=== PATIENT | female | born 1975 | race Caucasian/White ===

== ENCOUNTER 2016-11-16 14:38 | Emergency (ER) | payer OTHER ==
[~2016-11-16] VITALS: Ht 152.4 cm; Wt 54.4 kg
[~2016-11-16 14:38] MED LIST: AMLO-62 PO; FLUO20CA36 PO; SIMV10TA2 PO
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
--- NOTE | 2016-11-16 15:16 | NUR ---
pt to radiology for head ct scan via [facility].
[2016-11-16] MEDS ORDERED: HYDROCODONE/APAP 10/325MG 1 EA TABLET PO ONE (15:30)
[2016-11-16] MEDS ORDERED: HYDROCODONE/APAP 10/325MG 1 EA TABLET ONE (15:42)
[2016-11-16 16:46] VITALS: BP 148/72
--- NOTE | 2016-11-16 16:47 | NUR ---
Patient discharged to home in stable condition. Written and verbal after care instructions given. Patient verbalizes understanding of instruction.
== END 2016-11-16 16:48 | disposition home or self-care (01) ==
LOC: ER 14:41
DX: S09.90XA Unspecified injury of head, initial encounter (principal); S16.1XXA Strain of muscle, fascia and tendon at neck level, initial encounter; S60.221A Contusion of right hand, initial encounter; I10 Essential (primary) hypertension; F32.9 Major depressive disorder, single episode, unspecified; R01.1 Cardiac murmur, unspecified; Q21.0 Ventricular septal defect; F50.2 Bulimia nervosa; F17.200 Nicotine dependence, unspecified, uncomplicated; E78.00 Pure hypercholesterolemia, unspecified; Z88.2 Allergy status to sulfonamides; V49.40XA Driver injured in collision with unspecified motor vehicles in traffic accident, initial encounter; Y93.89 Activity, other specified; Y92.89 Other specified places as the place of occurrence of the external cause; Y99.9 Unspecified external cause status
CPT/HCPCS: 70450; 72125; 99284; A4606; A6402; Z7610